=== PATIENT | male | born 1950 | race Caucasian/White ===

== ENCOUNTER 2016-09-01 08:37 | Emergency (ER) | payer OTHER ==
[2016-09-01 08:56] VITALS: BP 138/76; BMI 23.3
[2016-09-01 09:20] LABS: BILIRUBIN,URINE NEGATIVE (NEGATIVE); BLOOD/HEMOGLOBIN,URINE 1+ (NEGATIVE); GLUCOSE, URINE NEGATIVE (NEGATIVE); KETONES,URINE 1+ (NEGATIVE); LEUKOCYTE ESTERASE ,URINE NEGATIVE (NEGATIVE); NITRITES,URINE NEGATIVE (NEGATIVE); PROTEIN,URINE 2+ (NEGATIVE); UROBILINOGEN,URINE NORMAL (NORMAL)
[2016-09-01] MEDS ORDERED: NS 1000 ML 1,000 ML IV ONE (09:23)
--- NOTE | 2016-09-01 09:23 | DR.GENAD ---
HPI - PCP Primary Care Physician: PAO - HPI Comment HPI Comment: PATIENT SAID PAIN STARTED SATURDAY. HAD AN EPISODE ONE WERRK AGO AND WENT AWAY. PAIN WORSE TODAY. POSITIVE N/V AND CONSTIPATION. PCP CAME HIM BENTYL BUT IT IS NOT HELPING. NO FEVER. NO DYSURIA. - Complaint/Symptoms Chief Complaint Doctors Comments: LOWER ABDOMINAL PAIN TIMES ONE DAY. Chief Complaint:: PT C/O LOWER ABD PAIN THAT STARTED YESTERDAY AM. PT STATES HE HAS NOT BEEN ABLE TO KEEP ANYTHING DOWN. PT STATES HE ALSO HAS NOT HAD A BM SINCE YESTERDAY AM. Self Treatment fo Chief Complaint: [id number] MG 1 TABS TID - Nurses notes reviewed Nurses Notes Review: Yes - Source History Provided: Patient - Mode of Arrival Mode of Arrival: Ambulatory - Timing Onset of Chief Complaint: 08/31/16 Came on: Suddenly - Duration Duration: Intermittent Duration: Days - Severity Severity: Moderate PMH - PMH Past Medical History: No Past Surgical History: No - Family History History of Family Medical Conditions: No - Social History Does patient currently use any type of tobacco product: Yes Have you used tobacco products in the last 12 months: Yes Type of Tobacco Use: Cigarettes Does any household member use tobacco: No Alcohol Use: Rarely Do you use any recreational Drugs:: No Lives With: Family Lives Where: Home - infectious screening In the last 2 months have you had wt loss of >10#?: NO Have you had fever, night sweats or hemotysis?: No Have you traveled outside the country in the last 6 months?: No Isolation: Standard ROS - Review of Systems Constitutional: No Symptoms Reported Eyes: No Symptoms Reported ENTM: No Symptoms Reported Respiratoy: No Symptoms Reported Cardiovascular: No Symptoms Reported Gastrointestinal/Abdominal: Abdominal Pain, Nausea, Vomiting Neurological: No Symptoms Reported Musculoskeletal: Back Pain Integumentary: No Symptoms Reported Hematologic/Lymphatic: No Symptoms Reported Endocrine: No Symptoms Reported All Other Systems: Reviewed and Negative PE - Vital Signs Vitals: Temperature 97.6 F Pulse Rate 63 Respiratory Rate 18 Blood Pressure 138/76 O2 Sat by Pulse Oximetry 97 - General Limitations: No Limitations General Appearance: Alert - Head Head Exam: Normal Inspection - Eyes Eye exam: Normal Appearance - ENT ENT Exam: Normal External Ear Exam External Ear Exam: Normal External Inspection TM/Canal Exam: Bilateral Normal Nose Exam: Normal Nose Exam Mouth Exam: Normal Inspection Throat Exam: Normal Inspection - Neck Neck Exam: Trachea Midline - Chest Chest Inspection: Symmetric Chest Wall Rise - Respiratory Respiratory Exam: Normal Lung Sounds Bilat Respiratory Exam: Bilateral Clear to Auscultation - Cardiovascular Cardiovascular Exam: Regular Rate, Normal Rhythm, Normal Heart Sounds - Abdominal Exam Abdominal Exam: Normal Bowel Sounds, Soft, Tenderness - Extremities Extremities Exam: Normal Inspection - Back Back Exam: Other (LOWER BACK PAIN) - Neurologic Neurological Exam: Alert - Psychiatric Psychiatric Exam: Normal Affect, Normal Mood - Skin Skin Exam: Normal Color [facility] - Additional Information Additional Information Obtained From: Family - Differential Diagnosis Differential Diagnosis: ABDOMINAL PAIN, KIDNEY STONE, UTI, BOWEL OBSTUCTION, GASTROENTERITIS Course - Treatment Treatment: SEE ORDERS - Reevaluation 1st: Improved (PAIN IMPROVE WITH MRDS) - Consultation Consultation Comments: DISCUS PATIENT WITH DR. AHUJA, UROLOGIST [facility]. HE WILL SEE PATIENT IN HIS OFFICE SATURDAY. IF WORSE AFTER D/C, [facility]. - Education/Counseling Education/Counseling: Patient, Family, Education Educated On: Treatment, Diagnosis, Needs for Follow Up ROR - Labs Reviewed Laboratory Results Reviewed?: Yes Result Diagrams: 09/01/16 09:00 09/01/16 09:00 Laboratory: WBC 12.2 X10^3/uL (3.6-10.0) H 09/01/16 09:00 RBC 4.93 X10^6/uL (4.7-6.0) 09/01/16 09:00 Hgb 15.8 g/dL (13.5-18.0) 09/01/16 09:00 Hct 47.1 % (42.0-54.0) 09/01/16 09:00 MCV 95.6 fL (80.0-100.0) 09/01/16 09:00 MCH 32.1 pg (27.0-34.0) 09/01/16 09:00 MCHC 33.6 g/dL (33.0-35.0) 09/01/16 09:00 RDW 13.4 % (11.6-16.5) 09/01/16 09:00 Plt Count 241 X10^3/uL (150.0-450.0) 09/01/16 09:00 MPV 7.9 fL (7.4-11.0) 09/01/16 09:00 Neut % 81.3 % (42.0-75.0) H 09/01/16 09:00 Lymph % 8.0 % (21.0-51.0) L 09/01/16 09:00 [place] % 9.2 % (0.0-13.0) 09/01/16 09:00 Eos % 0.1 % (0.9-2.9) L 09/01/16 09:00 Baso % 1.4 % (0.2-1.0) H 09/01/16 09:00 Neut # 9.9 x10^3/uL (2.2-4.8) H 09/01/16 09:00 Lymph # 1.0 X10^3/uL (1.3-2.9) L 09/01/16 09:00 [place] # 1.1 x10^3/uL (0.3-0.8) H 09/01/16 09:00 Eos # 0.0 x10^3/uL (0.0-0.2) 09/01/16 09:00 Baso # 0.2 X10^3/uL (0.0-0.1) H 09/01/16 09:00 Absolute Nucleated RBC 0.0 /100WBC 09/01/16 09:00 Sodium 138 mmol/L (136-145) 09/01/16 09:00 Corrected Sodium 138 mmol/L (136-145) 09/01/16 09:00 Potassium 3.9 mmol/L (3.5-5.1) 09/01/16 09:00 Chloride 100 mmol/L (98-107) 09/01/16 09:00 Carbon Dioxide 29.4 mmol/L (21-32) 09/01/16 09:00 BUN 15 mg/dL (7-18) 09/01/16 09:00 Creatinine 2.22 mg/dL (0.70-1.30) H 09/01/16 09:00 Est GFR (MDRD) Af Amer 38 (>60) L 09/01/16 09:00 Est GFR (MDRD) Non-Af 32 (>60) L 09/01/16 09:00 Glucose 120 mg/dL (65-99) H 09/01/16 09:00 Calcium 9.2 mg/dL (8.5-10.1) 09/01/16 09:00 Corrected Calcium TNP 09/01/16 09:00 Total Bilirubin 0.70 mg/dL (0.2-1.0) 09/01/16 09:00 AST 18 Units/L (15-37) 09/01/16 09:00 ALT 19 Units/L (12-78) 09/01/16 09:00 Alkaline Phosphatase 95 Units/L (46-116) 09/01/16 09:00 Total Protein 8.0 g/dL (6.4-8.2) 09/01/16 09:00 Albumin 3.9 g/dL (3.4-5.0) 09/01/16 09:00 Globulin 4.1 g/dL (2.5-4.5) 09/01/16 09:00 Albumin/Globulin Ratio 1.0 Ratio (1.1-2.1) L 09/01/16 09:00 Amylase 48 Units/L (25-115) 09/01/16 09:00 Lipase 123 Units/L (73-393) 09/01/16 09:00 Specimen Type Clean catch urine 09/01/16 09:10 Urine Color Yellow (YELLOW) 09/01/16 09:10 Urine Appearance Slightly hazy (CLEAR) 09/01/16 09:10 Urine pH 5.0 (5.0 - 8.0) 09/01/16 09:10 Ur Specific [place] 1.025 (1.000-1.030) 09/01/16 09:10 Urine Protein 2+ (NEGATIVE) 09/01/16 09:10 Urine Glucose (UA) Negative (NEGATIVE) 09/01/16 09:10 Urine Ketones 1+ (NEGATIVE) 09/01/16 09:10 Urine Occult Blood 1+ (NEGATIVE) 09/01/16 09:10 Urine Nitrite Negative (NEGATIVE) 09/01/16 09:10 Urine Bilirubin Negative (NEGATIVE) 09/01/16 09:10 Urine Urobilinogen Normal (NORMAL) 09/01/16 09:10 Ur Leukocyte Esterase Negative (NEGATIVE) 09/01/16 09:10 Urine RBC Rare /HPF (NEGATIVE) 09/01/16 09:10 Urine WBC Rare /HPF (NEGATIVE) 09/01/16 09:10 Ur Squamous Epith Cells Few /HPF (NEGATIVE) 09/01/16 09:10 Urine Bacteria Trace /HPF (NEGATIVE) 09/01/16 09:10 Urine Mucus Few /HPF (NEGATIVE) 09/01/16 09:10 Ur Culture Indicated? No/not indicated 09/01/16 09:10 - XRAY XRAY Interpreted by: Radiologist XRAY Findings: REPORT DISCUSS WITH PATIENT. - Diagnosis Discharge Problem: Left ureteral stone Abdominal pain Qualifiers: Abdominal location: lower abdomen, unspecified Qualified Code(s): R10.30 - Lower abdominal pain, unspecified Leukocytosis Qualifiers: Leukocytosis type: unspecified Qualified Code(s): D72.829 - Elevated white blood cell count, unspecified - Discharge Plan Condition: Stable Prescriptions: Ciprofloxacin HCl [CIPRO 500 MG TAB *] 500 mg PO Q12H #20 tab Hydrocodone-Acet 7.5 mg/325 mg [[place] 7.5/325 mg Tab] 1 tab PO Q6H PRN #20 tab PRN Reason: Pain Ondansetron HCl [Zofran Tab 4 mg] 4 mg PO Q8H PRN #12 tab PRN Reason: Nausea/Vomiting - Follow ups/Referrals Follow ups/Referrals: OMAR CEDENO V [Primary Care Provider] - 3 days - Instructions Instructions: Kidney Stones, [id number], Abdominal Pain, Adult, [id number] , Leukocytosis Additional Instructions: RETURN TO ED IF WORSE. SEE DR. AHUJA, UROLOGIST [facility] THIS Saturday IN HIS OFFIC TELEPHONE NUMBER [phone]. IF PAIN GET WORSE OR YOUR CONDITION GET WORSE, YOU SHOULD FOLLOW UP WITH HIM THROUGH THE EMERGENCY ROOM IN [place], [place].
[2016-09-01] MEDS ORDERED: ZOFRAN INJ 4 MG VIAL IVP ONE (09:24)
[2016-09-01] MEDS ORDERED: TORADOL 30 MG VIAL IVP ONE (09:24)
[2016-09-01] MEDS ORDERED: PEPCID 20 MG IV PREMIX* 20 MG/50 ML BAG IV ONE ×2 (09:24→09:32)
[2016-09-01 09:25] LABS: BASOPHILS # (AUTO) 0.2 X10^3/uL (0.0-0.1); BASOPHILS % (AUTO) 1.4 % (0.2-1.0); EOSINOPHILS % (AUTO) 0.1 % (0.9-2.9); HEMATOCRIT 47.1 % (42.0-54.0); HEMOGLOBIN 15.8 g/dL (13.5-18.0); MEAN CORPUSCULAR HEMOGLOBIN 32.1 pg (27.0-34.0); MEAN CORPUSCULAR HGB CONC 33.6 g/dL (33.0-35.0); MEAN CORPUSCULAR VOLUME 95.6 fL (80.0-100.0); MEAN PLATELET VOLUME 7.9 fL (7.4-11.0); MONOCYTES # (AUTO) 1.1 x10^3/uL (0.3-0.8); MONOCYTES % (AUTO) 9.2 % (0.0-13.0); NEUTROPHILS # (AUTO) 9.9 x10^3/uL (2.2-4.8); NEUTROPHILS % (AUTO) 81.3 % (42.0-75.0); PLATELET COUNT 241 X10^3/uL (150.0-450.0); RED BLOOD COUNT 4.93 X10^6/uL (4.7-6.0); RED CELL DISTRIBUTION WIDTH 13.4 % (11.6-16.5); WHITE BLOOD COUNT 12.2 X10^3/uL (3.6-10.0)
[2016-09-01 09:31] LABS: ALANINE AMINOTRANSFERASE 19 Units/L (12-78); ALBUMIN 3.9 g/dL (3.4-5.0); ALKALINE PHOSPHATASE 95 Units/L (46-116); AMYLASE 48 Units/L (25-115); ASPARTATE AMINO TRANSFERASE 18 Units/L (15-37); BLOOD UREA NITROGEN 15 mg/dL (7-18); CALCIUM 9.2 mg/dL (8.5-10.1); CARBON DIOXIDE 29.4 mmol/L (21-32); CHLORIDE 100 mmol/L (98-107); COR NA(FOR HYPERGLY) 138 mmol/L (136-145); CREATININE 2.22 mg/dL (0.70-1.30); GLUCOSE 120 mg/dL (65-99); LIPASE 123 Units/L (73-393); SODIUM 138 mmol/L (136-145); eGFR BLACK RACES 38 (>60); eGFR NON BLACK RACES 32 (>60)
[2016-09-01] MEDS ORDERED: ZOFRAN INJ 4 MG VIAL ONE (09:32)
[2016-09-01] MEDS ORDERED: TORADOL 30 MG VIAL ONE (09:32)
[2016-09-01] MEDS ORDERED: NS 1000 ML 1,000 ML ONE (09:32)
[2016-09-01 09:33] LABS: COLOR,URINE YELLOW (YELLOW)
[2016-09-01 09:34] LABS: APPEARANCE,URINE SLIGHTLY HAZY (CLEAR); BACTERIA,URINE TRACE /HPF (NEGATIVE); RBC,URINE RARE /HPF (NEGATIVE); SQUAMOUS EPITHELIAL CELL,UR FEW /HPF (NEGATIVE)
[2016-09-01 09:35] LABS: MUCUS,URINE FEW /HPF (NEGATIVE)
--- NOTE | 2016-09-01 10:23 | CT ---
CT OF THE ABDOMEN AND PELVIS WITHOUT CONTRAST HISTORY: Low abdominal pain Comparison: None Technique: Multiple axial images of the abdomen and pelvis were obtained from the lung bases to the pubic symph ysis without the administration of IV contrast. Trache that Dose reduction techniques including Aut omated Exposure Control (AEC) and adjustment of mA and kV were utlized. Findings: The heart is normal in size. There is no pericardial effusion. Lung bases are clear without focal co nsolidation, pleural effusion or pneumothorax. The sensitivity for focal lesion detection within the solid abdominal viscera is diminished without the use of IV contrast. Liver and spleen are normal in size, and contour. No focal lesions. No ductal dilitation. Gallbladde r is present. No calcified gallstones or gallbladder wall thickening. The pancreas is unremarkable. Adrenal glands are normal. Left-sided hydronephrosis and hydroureter secondary to 1.3 x 1.1 cm dista l left ureteral stone on series 3, image 66. No bowel obstruction or inflammation. Normal appendix. No abnormal appearing mesenteric or retroperi toneal lymph nodes. No free fluid or fluid collections. The bladder is normal in appearance. Prostate measures 5.3 cm. No free fluid or abnormal pelvic lymp h nodes. No aggressive osseous lesions. IMPRESSION: 1. Large obstructing distal left ureter stone with hydronephrosis and hydroureter on the left. Reported By:
[2016-09-01] MEDS ORDERED: DILAUDID INJ ONE (11:18)
[2016-09-01] MEDS ORDERED: DILAUDID INJ IVP ONE (11:26)
[2016-09-01] MEDS ORDERED: CIPRO TAB 500 MG PO ONE ×2 (11:49→12:00)
== END 2016-09-01 12:10 | disposition home or self-care (01) ==
LOC: ER 08:49
DX: N20.1 Calculus of ureter (principal); R10.84 Generalized abdominal pain; D72.829 Elevated white blood cell count, unspecified; N13.39 Other hydronephrosis; N13.4 Hydroureter
CPT/HCPCS: 36415; 74176; 80053; 81001; 82150; 83690; 85025; 87086; 96365; 96374; 96375; 99283; A4222; S0028; J1170; J1885; J2405

== ENCOUNTER 2016-09-05 03:29 | Emergency (ER) | payer OTHER ==
[2016-09-05 03:36] VITALS: BP 136/65; BMI 23.3
--- NOTE | 2016-09-05 03:57 | DR.GENAD ---
HPI - PCP Primary Care Physician: OMAR CEDENO - Complaint/Symptoms Chief Complaint:: UNABLE TO URINATE - Nurses notes reviewed Nurses Notes Review: Yes - Source History Provided: Patient, Family Member - Mode of Arrival Mode of Arrival: Ambulatory - Timing Onset of Chief Complaint: 09/05/16 Came on: Suddenly - Duration Duration: Constant Duration: Hours - Location Location: bladder - Severity Severity: Moderate - Modifying Factors Worsens:: drinking - Associated Signs and Symptoms Associated Signs and Symptoms: unable to urinate PMH - PMH Past Medical History: No Past Surgical History: Yes Surgical History: Lithotripsy - Family History History of Family Medical Conditions: No - Social History Does patient currently use any type of tobacco product: Yes Have you used tobacco products in the last 12 months: Yes Type of Tobacco Use: Cigarettes Does any household member use tobacco: Yes Alcohol Use: None Do you use any recreational Drugs:: No Lives With: Family Lives Where: Home - infectious screening In the last 2 months have you had wt loss of >10#?: NO Have you had fever, night sweats or hemotysis?: No Have you traveled outside the country in the last 6 months?: No Isolation: Standard ROS - Review of Systems Constitutional: No Symptoms Reported Eyes: No Symptoms Reported ENTM: No Symptoms Reported Respiratoy: No Symptoms Reported Cardiovascular: No Symptoms Reported Gastrointestinal/Abdominal: No Symptoms Reported Genitourinary: Hematuria, Other (retention) Neurological: No Symptoms Reported Musculoskeletal: No Symptoms Reported Integumentary: No Symptoms Reported Hematologic/Lymphatic: No Symptoms Reported Endocrine: No Symptoms Reported Psychiatric: No Symptoms Reported All Other Systems: Reviewed and Negative PE - Vital Signs Vitals: Temperature 97.9 F Pulse Rate 62 Respiratory Rate 16 Blood Pressure 136/65 O2 Sat by Pulse Oximetry 98 - General Limitations: No Limitations General Appearance: Alert, In No Apparent Distress - Head Head Exam: Normal Inspection - Eyes Eye exam: Normal Appearance, EOMI, Scleral Icterus - ENT ENT Exam: Normal Exam External Ear Exam: Normal External Inspection Nose Exam: Normal Nose Exam Mouth Exam: Normal Inspection - Neck Neck Exam: Normal Inspection, Full ROM, Trachea Midline - Respiratory Respiratory Exam: negative: Accessory Muscle Use, Respiratory Distress - Abdominal Exam Abdominal Exam: Normal Inspection, Normal Bowel Sounds, Soft - Extremities Extremities Exam: Normal Inspection, Full ROM - Back Back Exam: Normal Inspection, Full ROM - Neurologic Neurological Exam: Alert, Oriented X3, CN II-XII Intact - Psychiatric Psychiatric Exam: Other (pain affect) - Skin Skin Exam: Intact, Normal Color Course - Consultation Called: 04:05 Call Returned: 04:11 Consultation Comments: Case discussed with Dr. Turpin, said it is fine to place a Bermudez catheter. Follow up in office. - Diagnosis Discharge Problem: Urinary retention - Discharge Plan Condition: Stable - Follow ups/Referrals Follow ups/Referrals: OMAR CEDENO V [Primary Care Provider] - 3 days - Instructions
[2016-09-05] MEDS ORDERED: NORCO 5/325 MG TAB PO ONE (04:13)
[2016-09-05] MEDS ORDERED: NORCO 5/325 MG TAB ONE (04:24)
== END 2016-09-05 04:31 | disposition home or self-care (01) ==
LOC: ER 03:29
PROC: 0T9B70Z Drainage of Bladder with Drainage Device, Via Natural or Artificial Opening (ICD-10-PCS; principal; 2016-09-05)
DX: R33.8 Other retention of urine (principal)
CPT/HCPCS: 51702; 99282